=== PATIENT | female | born 1990 | race Caucasian/White ===

== ENCOUNTER 2017-03-18 09:02 | Emergency (ER) | payer MEDICAID ==
[2017-03-18 09:05] VITALS: BMI 27.8
[2017-03-18 09:07] VITALS: O2SAT 98
--- NOTE | 2017-03-18 09:48 | ED PDOC ---
HPI: General Adult Time Seen by Provider: 03/18/17 09:23 Chief Complaint (Nursing): Flu-like Symptoms Chief Complaint (Provider): Flu like symptoms History Per: Patient History/Exam Limitations: no limitations Onset/Duration Of Symptoms: Days (4) Have you had recent travel within the past 21 days to any of the following countries: [place], [place], [place] or [place]?: No Additional History Per: Patient Additional Complaint(s): 26yo female with no past medical history, presents to ED with complaints of fever, generalized bodyaches, nasal congestion for the apst 4 days. Patient states she visited her PCP 4 days ago and had the rapid flu and strep tests done which were both negative. She was placed on a course of Augmentin which she has been taking with no relief. She also reports associated cough and episodes of loose stools. She denies any shortness of breath, chest pain, vomiting, abdominal pain or urinary symptoms. 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 Past Medical History Reviewed: Historical Data, Nursing Documentation, Vital Signs Vital Signs: Last Vital Signs Temp 102.7 F H 03/18/17 09:06 Pulse 113 H 03/18/17 09:06 Resp 20 03/18/17 09:06 BP 126/67 03/18/17 09:06 Pulse Ox 98 03/18/17 09:54 - Medical History PMH: No Chronic Diseases - Surgical History Surgical History: No Surg Hx - Family History Family History: States: No Known Family Hx - Immunization History Hx Tetanus Toxoid Vaccination: No Hx Influenza Vaccination: Yes (2015) Hx Pneumococcal Vaccination: No - Home Medications Home Medications: Ambulatory Orders Medication Instructions Recorded Desmopressin Acetate [Ddavp] 0.1 mg PO HS 06/20/16 Pentosan Polysulfate Sodium 100 mg PO BID 06/20/16 [Elmiron] Tobramycin 0.3% [Tobrex 0.3% Ophth 2 drop AD QID #1 bottle 06/20/16 Soln] Benzonatate [Tessalon Perles] 100 mg PO BID PRN 5 Days sgl 03/18/17 Ibuprofen [Motrin] 600 mg PO TID 7 Days tab 03/18/17 - Allergies Allergies/Adverse Reactions: Allergies Allergy/AdvReac Type Severity Reaction Status Date / Time No Known Allergies Allergy Verified 06/20/16 16:14 Review of Systems ROS Statement: Except As Marked, All Systems Reviewed And Found Negative Constitutional: Positive for: Fever, Chills, Malaise ENT: Positive for: Nose Congestion Cardiovascular: Negative for: Chest Pain Respiratory: Positive for: Cough. Negative for: Shortness of Breath Gastrointestinal: Positive for: Nausea. Negative for: Vomiting, Abdominal Pain Genitourinary Female: Negative for: Dysuria, Hematuria Physical Exam - Reviewed Nursing Documentation Reviewed: Yes Vital Signs Reviewed: Yes - Physical Exam Appears: Positive for: Non-toxic Head Exam: Positive for: ATRAUMATIC, NORMAL INSPECTION, NORMOCEPHALIC Skin: Positive for: Normal Color Eye Exam: Positive for: EOMI, PERRL ENT: Positive for: Nasal Congestion. Negative for: Pharyngeal Erythema, Tonsillar Exudate, Tonsillar Swelling Neck: Positive for: Supple Cardiovascular/Chest: Positive for: Regular Rate, Rhythm. Negative for: Murmur Respiratory: Positive for: Normal Breath Sounds. Negative for: Wheezing Gastrointestinal/Abdominal: Positive for: Normal Exam, Soft. Negative for: Tenderness Neurologic/Psych: Positive for: Alert, Oriented - ECG O2 Sat by Pulse Oximetry: 98 (RA) Pulse Ox Interpretation: Normal - Progress ED Course And Treament: 1057: Stable. AAOx3. Pain free. Tolerated PO. Fu with pcp. Medical Decision Making Medical Decision Making: Impression: Viral illness Plan: -- Tessalon Perles 100mg PO -- Motrin 600 mg PO Patient informed to increase fluid intake and to take Motrin and Tylenol every 6 hours alternatingly for her symptoms. Advised to follow up with PCP in 1-2 days. Scribe Attestation: Documented by Tresa Hernandez acting as a scribe for Goldy Herbert MD. Provider Attestation: All medical record entries made by the Scribe were at my direction and personally dictated by me. I have reviewed the chart and agree that the record accurately reflects my personal performance of the history, physical exam, medical decision making, and the department course for this patient. I have also personally directed, reviewed, and agree with the discharge instructions and disposition. Disposition - Clinical Impression Clinical Impression: URI (upper respiratory infection) - Patient ED Disposition Is Patient to be Admitted: No Counseled Patient/Family Regarding: Studies Performed, Diagnosis, Need For Followup, Rx Given - Disposition Referrals: [facility] [Outside] - 03/21/17 Disposition: Routine/Home Disposition Time: 09:54 Condition: STABLE Additional Instructions: Return if not better in 3 days. Prescriptions: Benzonatate [Tessalon Perles] 100 mg PO BID PRN 5 Days sgl PRN Reason: Cough Ibuprofen [Motrin] 600 mg PO TID 7 Days tab Instructions: Upper Respiratory Infection (ED) Forms: [facility] ED School/Work Excuse, [facility] (Slovak)
[2017-03-18 11:03] VITALS: BP 105/56; PULSE 94; RESP 16; TEMP 100
== END 2017-03-18 11:30 | disposition home or self-care (01) ==
LOC: H.ER 09:02
DX: J06.9 Acute upper respiratory infection, unspecified (principal)

== ENCOUNTER 2017-05-30 11:23 | Emergency (ER) | payer MEDICAID, OTHER ==
[2017-05-30 11:38] VITALS: BP 104/64; PULSE 75; RESP 16; TEMP 98; O2SAT 100; BMI 28.1
[2017-05-30] MEDS ORDERED: Sodium Chloride 0.9% 1,000 ML IV STA (12:16)
[2017-05-30 12:46] LABS: BASO # 0.1 K/uL (0.0-0.2); BASO % 1.9 % (0.0-2.0); EOS # 0.2 K/uL (0.0-0.7); EOS % 5.5 % (0.0-4.0); HEMOGLOBIN 12.4 g/dL (12.0-16.0); LYMPH # 1.2 K/uL (1.0-4.3); LYMPH % 28.5 % (20.0-40.0); MEAN CORPUSCULAR HEMOGLOBIN 27.7 pg (27.0-31.0); MEAN CORPUSCULAR HGB CONC 32.9 g/dL (33.0-37.0); MEAN PLATELET VOLUME 8.4 fl (7.2-11.7); MONO # 0.6 K/uL (0.0-0.8); MONO % 14.6 % (0.0-10.0); NEUT # 2.1 K/uL (1.8-7.0); NEUT % 49.5 % (50.0-75.0); NRBC % 0.2 % (0.0-0.0); RBC 4.5 Mil/uL (3.80-5.20); RED CELL DISTRIBUTION WIDTH 13.8 % (11.5-14.5); WHITE BLOOD COUNT 4.3 K/uL (4.8-10.8)
[2017-05-30 12:56] LABS: ALB/GLOB RATIO 1.1 (1.0-2.1); ALBUMIN 3.9 g/dL (3.5-5.0); ALT/SGPT 27 U/L (9-52); AST/SGOT 16 U/L (14-36); BLOOD UREA NITROGEN 15 mg/dl (7-17); CALCIUM 8.8 mg/dL (8.4-10.2); GFR AFRICAN-AMERICAN > 60; GFR NON-AFRICAN AMERICAN > 60
--- NOTE | 2017-05-30 13:03 | ED PDOC ---
Syncope/Near Syncope/Dizziness Time Seen by Provider: 05/30/17 11:31 Chief Complaint (Nursing): Syncope Chief Complaint (Provider): Lightheadedness History Per: Patient Associated Symptoms Preceding Syncopal Episode: Lightheadedness Additional Complaint(s): Pt states she was at work putting things away when she felt lightheaded with pain on the right side of the head. Pt states she fell to her knees and felt weakness. Pt states the same thing happened 2 days ago. Pt states she has also been having a sharp pain on the left side of the head. PT states it happened today. Pt states it has been going on for a few weeks but has been becoming more and more frequent. Past Medical History Reviewed: Historical Data, Nursing Documentation, Vital Signs Vital Signs: Last Vital Signs Temp 98 F 05/30/17 11:37 Pulse 75 05/30/17 11:37 Resp 16 05/30/17 11:37 BP 104/64 05/30/17 11:37 Pulse Ox 100 05/30/17 11:37 - Medical History PMH: No Chronic Diseases - Surgical History Surgical History: No Surg Hx - Family History Family History: States: No Known Family Hx - Immunization History Hx Tetanus Toxoid Vaccination: No Hx Influenza Vaccination: Yes (2015) Hx Pneumococcal Vaccination: No - Home Medications Home Medications: Ambulatory Orders Medication Instructions Recorded Desmopressin Acetate [Ddavp] 0.1 mg PO HS 06/20/16 Pentosan Polysulfate Sodium 100 mg PO BID 06/20/16 [Elmiron] Tobramycin 0.3% [Tobrex 0.3% Ophth 2 drop AD QID #1 bottle 06/20/16 Soln] Benzonatate [Tessalon Perles] 100 mg PO BID PRN 5 Days sgl 03/18/17 Ibuprofen [Motrin] 600 mg PO TID 7 Days tab 03/18/17 - Allergies Allergies/Adverse Reactions: Allergies Allergy/AdvReac Type Severity Reaction Status Date / Time No Known Allergies Allergy Verified 06/20/16 16:14 Review of Systems ROS Statement: Except As Marked, All Systems Reviewed And Found Negative Cardiovascular: Negative for: Chest Pain Respiratory: Negative for: Shortness of Breath Neurological: Positive for: Headache, Dizziness. Negative for: Confusion, Seizures, Altered Mental Status Psych: Negative for: Suicidal ideation Physical Exam - Reviewed Nursing Documentation Reviewed: Yes Vital Signs Reviewed: Yes - Physical Exam Appears: Positive for: Well, Non-toxic, No Acute Distress Head Exam: Positive for: ATRAUMATIC, NORMAL INSPECTION, NORMOCEPHALIC Skin: Positive for: Normal Color, Warm, DRY Eye Exam: Positive for: Normal appearance, EOMI, PERRL ENT: Positive for: Normal ENT Inspection Neck: Positive for: Normal, Painless ROM Cardiovascular/Chest: Positive for: Regular Rate, Rhythm Respiratory: Positive for: CNT, Normal Breath Sounds Back: Positive for: Normal Inspection Extremity: Positive for: Normal ROM Neurologic/Psych: Positive for: Alert, Oriented - Laboratory Results Result Diagrams: 05/30/17 12:35 05/30/17 12:35 - ECG O2 Sat by Pulse Oximetry: 100 Medical Decision Making Medical Decision Making: Labs normal Head CT normal EKG - NSR In ER pt reports continued headache and motrin ordered. PT denies dizziness in Er. Disposition - Clinical Impression Clinical Impression: Near syncope - Disposition Referrals: Mayco Cole MD [Staff Provider] - Disposition: Routine/Home Disposition Time: 15:54 Condition: STABLE Instructions: Near Fainting Forms: [facility] (Estonian), [facility] ED School/Work Excuse
--- NOTE | 2017-05-30 14:33 | CT ---
PROCEDURE: CT HEAD WITHOUT CONTRAST. HISTORY: headache, lightheaded, more frequent COMPARISON: None available. TECHNIQUE: Axial computed tomography images were obtained through the head/brain without intravenous contrast. Coronal and sagittal reconstructed images. Radiation dose: Total exam DLP = 814.25 mGy-cm. This CT exam was performed using one or more of the following dose reduction techniques: Automated exposure control, adjustment of the mA and/or kV according to patient size, and/or use of iterative reconstruction technique. FINDINGS: HEMORRHAGE: No intracranial hemorrhage. BRAIN: No mass effect or edema. No atrophy or chronic microvascular ischemic changes. VENTRICLES: Unremarkable. No hydrocephalus. CALVARIUM: Unremarkable. PARANASAL SINUSES: Unremarkable as visualized. No significant inflammatory changes. MASTOID AIR CELLS: Unremarkable as visualized. No inflammatory changes. OTHER FINDINGS: None. IMPRESSION: No acute intracranial abnormalities. No significant findings to account for the clinical presentation.
--- NOTE | 2017-05-31 07:33 | CARD ---
APPROVED REPORT EKG Measurement Heart [id number] <Conclusion> Normal sinus rhythm Normal ECG
== END 2017-05-30 16:25 | disposition home or self-care (01) ==
LOC: H.ER 11:23
DX: R55 Syncope and collapse (principal)
CPT/HCPCS: 70450; 80053; 81025; 84443; 85025; 93005; 99285; J7040

== ENCOUNTER 2018-01-28 11:46 | Emergency (ER) | payer MEDICAID ==
[2018-01-28 11:58] VITALS: BMI 32.0
--- NOTE | 2018-01-28 12:30 | ED PDOC ---
HPI: Female Pain Time Seen by Provider: 01/28/18 12:18 Chief Complaint (Nursing): Trauma History Per: Patient Onset/Duration Of Symptoms: Hrs (1) Current Symptoms Are (Timing): Still Present Severity: Mild Additional Complaint(s): Slipped and fell on wet floor and fell forward. Did not land on abd C/o mild lower abd pain, but denies vaginal bleeding. No movement felt by pt Past Medical History Vital Signs: Last Vital Signs Temp 98.2 F 01/28/18 11:57 Pulse 78 01/28/18 11:57 Resp BP 108/70 01/28/18 11:57 Pulse Ox 98 01/28/18 11:57 - Medical History PMH: No Chronic Diseases Denies: Chronic Kidney Disease - Family History Family History: States: Unknown Family Hx - Immunization History Hx Tetanus Toxoid Vaccination: No Hx Influenza Vaccination: Yes (2015) Hx Pneumococcal Vaccination: No - Home Medications Home Medications: Ambulatory Orders Medication Instructions Recorded Desmopressin Acetate [Ddavp] 0.1 mg PO HS 06/20/16 Pentosan Polysulfate Sodium 100 mg PO BID 06/20/16 [Elmiron] Tobramycin 0.3% [Tobrex 0.3% Ophth 2 drop AD QID #1 bottle 06/20/16 Soln] Benzonatate [Tessalon Perles] 100 mg PO BID PRN 5 Days sgl 03/18/17 Ibuprofen [Motrin] 600 mg PO TID 7 Days tab 03/18/17 Amoxicillin/Clavulanate [Augmentin 1 tab PO BID #20 tab 05/30/17 875 MG-125 MG] traMADol [Ultram] 50 mg PO Q6H PRN #15 tab 05/30/17 - Allergies Allergies/Adverse Reactions: Allergies Allergy/AdvReac Type Severity Reaction Status Date / Time No Known Allergies Allergy Verified 06/20/16 16:14 Review of Systems Gastrointestinal: Positive for: Abdominal Pain Genitourinary Female: Negative for: Vaginal Bleeding Physical Exam - Physical Exam Appears: Positive for: Non-toxic, No Acute Distress Head Exam: Positive for: ATRAUMATIC, NORMAL INSPECTION, NORMOCEPHALIC Skin: Positive for: Normal Color, Warm, DRY Gastrointestinal/Abdominal: Positive for: Bowel Sounds, Soft. Negative for: Tenderness Pelvic Exam: Positive for: External Exam Normal. Negative for: Blood, Tender Adnexa, Tender Uterus - ECG O2 Sat by Pulse Oximetry: 98 Disposition - Clinical Impression Clinical Impression: Threatened - Patient ED Disposition Is Patient to be Admitted: No Counseled Patient/Family Regarding: Studies Performed, Diagnosis, Need For Followup - Disposition Disposition: Routine/Home Disposition Time: 16:46 Condition: FAIR Instructions: Threatened Miscarriage Forms: [facility] (Romansh)
[2018-01-28 15:50] VITALS: TEMP 98.9
[2018-01-28 16:57] VITALS: BP 104/59; PULSE 91; RESP 18; O2SAT 99
--- NOTE | 2018-01-29 15:24 | US ---
Date of service: 01/28/2018 PROCEDURE: OB Pelvic Ultrasound HISTORY: 11 weeks fall LMP: 11/12/2017 suggesting 11 week 0 day gestation. COMPARISON: None available. FINDINGS: UTERUS: Gestational sac: Single intrauterine gestation. Heart rate: 173 bpm. age (Ultrasound estimated): 10 weeks 5 days, by CRL mean 3.85 cm and MSD 5.03 cm. Parris-gestational hemorrhage: None. Date of delivery (Ultrasound estimated) : 08/19/2018 Uterus measures 10.6 x 8.1 x 8.2 cm. Normal in size and appearance, anteverted. CERVIX: Measures 3.0 cm. Long and closed. No cervical abnormality seen. RIGHT OVARY: Not identified. LEFT OVARY: Measures 2.9 x 2.2 x 1.7 cm. No solid mass. Normal flow. FREE FLUID: None. OTHER FINDINGS: None. IMPRESSION: Single viable intrauterine gestation with average pelvic age of 10 weeks 5 days and rate of 173 beats per minute. Concordant preliminary report from Jessica, 01/28/2018 7:22 p.m.
== END 2018-01-28 16:55 | disposition home or self-care (01) ==
LOC: H.ER 11:46
DX: O20.0 Threatened abortion (principal); Z3A.10 10 weeks gestation of pregnancy; W01.0XXA Fall on same level from slipping, tripping and stumbling without subsequent striking against object, initial encounter

== ENCOUNTER 2018-06-21 16:21 | Emergency (ER) | payer MEDICAID ==
[2018-06-21 16:21] VITALS: BMI 32.0
[2018-06-21 16:25] VITALS: BP 129/73; RESP 16; TEMP 98.5; O2SAT 100
--- NOTE | 2018-06-21 17:22 | ED PDOC ---
Lower Extremity Pain/Injury Time Seen by Provider: 06/21/18 17:01 Chief Complaint (Nursing): Lower Extremity Problem/Injury Chief Complaint (Provider): Lower Extremity Problem/Injury History Per: Patient History/Exam Limitations: no limitations Onset/Duration Of Symptoms: Hrs Additional Complaint(s): 27 y/o female who is 31 weeks presents to the ED complaining of ankle pain. patient states she tripped down the curb and is unable to bare weight. Patient denies any other injuries at this time. PMD: none provided - Ankle/Foot Currently Unable To: Bear Weight Past Medical History Reviewed: Historical Data, Nursing Documentation, Vital Signs Vital Signs: Last Vital Signs Temp 98.5 F 06/21/18 16:21 Pulse 96 H 06/21/18 16:21 Resp 16 06/21/18 16:21 BP 129/73 06/21/18 16:21 Pulse Ox 100 06/21/18 16:21 Primary Care Provider: Non [facility] Provider, - Medical History PMH: Denies: Chronic Kidney Disease - Family History Family History: States: Unknown Family Hx - Immunization History Hx Tetanus Toxoid Vaccination: No Hx Influenza Vaccination: Yes (2015) Hx Pneumococcal Vaccination: No - Home Medications Home Medications: Ambulatory Orders Medication Instructions Recorded Desmopressin Acetate [Ddavp] 0.1 mg PO HS 06/20/16 Pentosan Polysulfate Sodium 100 mg PO BID 06/20/16 [Elmiron] Tobramycin 0.3% [Tobrex 0.3% Ophth 2 drop AD QID #1 bottle 06/20/16 Soln] Benzonatate [Tessalon Perles] 100 mg PO BID PRN 5 Days sgl 03/18/17 Ibuprofen [Motrin] 600 mg PO TID 7 Days tab 03/18/17 Amoxicillin/Clavulanate [Augmentin 1 tab PO BID #20 tab 05/30/17 875 MG-125 MG] traMADol [Ultram] 50 mg PO Q6H PRN #15 tab 05/30/17 Acetaminophen [Acetaminophen Extra 2 tab PO Q6 PRN #24 tablet 06/21/18 Strength] - Allergies Allergies/Adverse Reactions: Allergies Allergy/AdvReac Type Severity Reaction Status Date / Time No Known Allergies Allergy Verified 06/20/16 16:14 Review of Systems ROS Statement: Except As Marked, All Systems Reviewed And Found Negative Musculoskeletal: Negative for: Foot Pain Physical Exam - Reviewed Nursing Documentation Reviewed: Yes Vital Signs Reviewed: Yes - Physical Exam Appears: Positive for: Well, Non-toxic, No Acute Distress Head Exam: Positive for: ATRAUMATIC, NORMAL INSPECTION, NORMOCEPHALIC Skin: Positive for: Normal Color, Warm, Dry Eye Exam: Positive for: EOMI, Normal appearance, PERRL ENT: Positive for: Normal ENT Inspection Neck: Positive for: Normal, Painless ROM, Supple Cardiovascular/Chest: Positive for: Regular Rate, Rhythm. Negative for: Murmur Respiratory: Positive for: Normal Breath Sounds. Negative for: Wheezing Gastrointestinal/Abdominal: Positive for: Normal Exam, Soft. Negative for: Tenderness Back: Positive for: Normal Inspection. Negative for: L CVA Tenderness, R CVA Tenderness Extremity: Positive for: Normal ROM, Swelling (Moderate left malleolus with tenderness.). Negative for: Tenderness (No foot tenderness. No knee tenderness.) Neurological/Psych: Positive for: Awake, Alert, Normal Tone - ECG O2 Sat by Pulse Oximetry: 100 - Progress ED Course And Treament: xry of ankle: no fx seen by podiatry resident. Given crutch instructions. Placed in Zapien compression and boot. Will f/u next week in clinic. Medical Decision Making Medical Decision Making: Time:1703 Impression: Plan: -Tylenol 975mg PO -X-ray ankle Scribe Attestation: Documented by Susan Velasquez, acting as a scribe for Nahid Kramer. Provider Scribe Attestation: All medical record entries made by the Scribe were at my direction and personally dictated by me. I have reviewed the chart and agree that the record accurately reflects my personal performance of the history, physical exam, medical decision making, and the department course for this patient. I have also personally directed, reviewed, and agree with the discharge instructions and disposition. Disposition - Clinical Impression Clinical Impression: Left ankle sprain - Patient ED Disposition Is Patient to be Admitted: No - Disposition Referrals: Podiatry Clinic [Outside] Aiyana William DPM [Medical Doctor] - Disposition: Routine/Home Disposition Time: 18:21 Condition: FAIR Prescriptions: Acetaminophen [Acetaminophen Extra Strength] 2 tab PO Q6 PRN #24 tablet PRN Reason: Pain, Moderate (4-7) Instructions: Ankle Sprain (DC)
--- NOTE | 2018-06-21 17:48 | RAD ---
Date of service: 06/21/2018 PROCEDURE: Left Ankle Radiographs. HISTORY: ankle injury COMPARISON: None available. TECHNIQUE: 3 views obtained. FINDINGS: BONES: Normal. No fracture. JOINTS: Normal. No osteoarthritis. Ankle mortise maintained. Talar dome intact SOFT TISSUES: Lateral soft tissue swelling without distal fibular fracture. OTHER FINDINGS: None. IMPRESSION: Soft tissue swelling without acute articular or osseous abnormality.
[2018-06-21 18:43] VITALS: PULSE 84
--- NOTE | 2018-06-21 19:08 | CP.PCM.CON ---
History of Present Illness - History of Present Illness History of Present Illness: Podiatry consult note for Dr. William, 27 y/o female patient with no significant past medical history, however is 31 weeks was seen and evaluated in the ED due to complaints of left ankle pain. Patient states she twisted her ankle while walking earlier today and is unable to bear weight. Patient denies any other injuries at this time. Patient denies any fever, nausea, vomiting, shortness of breath or chest pain. Review of Systems - Review of Systems All systems: reviewed and no additional remarkable complaints except Review of Systems: As per HPI Past Patient History - Infectious Disease Hx of Infectious Diseases: None - Tetanus Immunizations Tetanus Immunization: Unknown - Past Social History Smoking Status: Heavy Smoker > 10 Cigarettes Daily - CARDIAC Hx Cardiac Disorders: No - PULMONARY Hx Respiratory Disorders: No - NEUROLOGICAL Hx Neurological Disorder: No - HEENT Hx HEENT Problems: No - RENAL Hx Chronic Kidney Disease: No - ENDOCRINE/METABOLIC Hx Endocrine Disorders: No - HEMATOLOGICAL/ONCOLOGICAL Hx Blood Disorders: No - INTEGUMENTARY Hx Dermatological Problems: No - MUSCULOSKELETAL/RHEUMATOLOGICAL Hx Musculoskeletal Disorders: No - GASTROINTESTINAL Hx Gastrointestinal Disorders: No - GENITOURINARY/GYNECOLOGICAL Hx Genitourinary Disorders: Yes Hx Urinary Tract Infection: Yes Other/Comment: Interstitial cystitis - PSYCHIATRIC Hx Psychophysiologic Disorder: No Hx Substance Use: No - SURGICAL HISTORY Hx Surgeries: Yes Other/Comment: cyst removal from right breast, bladder biopsy - ANESTHESIA Hx Anesthesia: Yes Hx Anesthesia Reactions: No Hx Malignant Hyperthermia: No Meds Home Medications: Home Medication List Medication Instructions Recorded Confirmed Type Acetaminophen [Acetaminophen Extra 2 tab PO Q6 PRN #24 tablet 06/21/18 Rx Strength] Allergies/Adverse Reactions: Allergies Allergy/AdvReac Type Severity Reaction Status Date / Time No Known Allergies Allergy Verified 06/20/16 16:14 Physical Exam - Constitutional Appears: Well, Non-toxic, No Acute Distress - Head Exam Head Exam: ATRAUMATIC, NORMOCEPHALIC - Extremities Exam Additional comments: LLE focused VASC: DP and PT pulses palpable, cap refill <3 seconds to all digits; moderate edema noted globally at the ankle ; temp gradient warm to warm DERM: No open lesions, no erythema, no clinical signs of infection ORTHO: pain on palpation at the ankle joint laterally; ROM not tested 2/2 to guarding, MMT not tested NEURO: gross and protective sensation intact - Neurological Exam Neurological exam: Alert, Oriented x3 - Psychiatric Exam Psychiatric exam: Normal Affect, Normal Mood Results - Vital Signs Recent Vital Signs: Last Vital Signs Temp 98.5 F 06/21/18 16:21 Pulse 84 06/21/18 18:42 Resp 16 06/21/18 16:21 BP 129/73 06/21/18 16:21 Pulse Ox 100 06/21/18 18:21 Assessment & Plan - Assessment and Plan (Free Text) Assessment: 27 y/o female patient seen and evaluated for left ankle injury Plan: Patient seen and evaluated Plan discussed with Dr. William Ordered left Ankle X-ray: soft tissue swelling without acute articular or osseous abnormality Patient explained that she does not have an osseous injury at this time Patient advised that due to her it would be best not to keep her completely non-weight bearing to the left lower extremity Patient placed in a Zapien compression with surgical shoe to weight bear as tolerated to the left lower extremity Patient provided with crutches and crutch training Patient to removed Zapien compression in several days and apply EFREM to the left ankle Patient to rest ice and elevate to allow swelling to calm down Patient to take Tylenol for pain as needed Patient to follow up in Podiatry clinic next week for re-evaluation Thank you for the consult - Date & Time Date: 06/21/18 Time: 19:36
== END 2018-06-21 18:21 | disposition home or self-care (01) ==
LOC: H.ER 16:21
DX: O99.89 Other specified diseases and conditions complicating pregnancy, childbirth and the puerperium (principal); S93.402A Sprain of unspecified ligament of left ankle, initial encounter; Z3A.31 31 weeks gestation of pregnancy; F17.210 Nicotine dependence, cigarettes, uncomplicated; O99.333 Smoking (tobacco) complicating pregnancy, third trimester; O9A.213 Injury, poisoning and certain other consequences of external causes complicating pregnancy, third trimester; X50.1XXA Overexertion from prolonged static or awkward postures, initial encounter